=== PATIENT | male | born 1995 | race Caucasian/White ===

== ENCOUNTER 2019-07-24 16:49 | Emergency (ER) | payer OTHER ==
--- NOTE | 2019-07-24 18:29 | ED ---
Laceration/Wound HPI - HPI Summary HPI Summary: 24 yo male presents with LEFT ring finger laceration. He tells me that he was slicing apples and slipped and avulsed a piece of his skin on his distal left ring finger. Bandaged the area and came to the ED. States last tetanus was a few months ago for school. - History of Current Complaint Stated Complaint: LT MIDDLE FINGER LAC PER PT Time Seen by Provider: 07/24/19 18:28 Hx Obtained From: Patient Onset/Duration: Sudden Onset Onset Severity: Mild Current Severity: Mild Pain Intensity: 3 Pain Scale Used: 0-10 Numeric - Allergy/Home Medications Allergies/Adverse Reactions: Allergies Allergy/AdvReac Type Severity Reaction Status Date / Time No Known Allergies Allergy Verified 07/24/19 16:59 PMH/Surg Hx/FS Hx/Imm Hx Endocrine/Hematology History: Denies: Hx Blood Disorders, Hx Diabetes Respiratory History: Denies: Hx Asthma, Hx Chronic Obstructive Pulmonary Disease (COPD) Neurological History: Denies: Hx CVA, Hx Headaches - Surgical History Surgical History: None - Immunization History Immunizations Up to Date: Yes Infectious Disease History: No Infectious Disease History: Denies: Traveled Outside the [place] in Last 30 Days - Family History Known Family History: Positive: Non-Contributory - Social History Occupation: Student Lives: With Family Alcohol Use: None Substance Use Type: Reports: None Smoking Status (MU): Never Smoked Tobacco Review of Systems Constitutional: Negative Cardiovascular: Negative Respiratory: Negative Musculoskeletal: Negative Skin: Other - Laceration left ring finger Neurological: Negative Psychological: Normal All Other Systems Reviewed And Are Negative: No Physical Exam - Summary Physical Exam Summary: GENERAL: NAD. WDWN. No pain distress. SKIN: LEFT RING FINGER: Dorsal aspect distal phalnx with superficial skin avulsion that includes the ulnar aspect of the distal nail without cuticle involvement. No bony or tendon involvement. CHEST: No accessory muscle use. Breathing comfortably and in no distress. CV: Pulses intact. Cap refill <2seconds NEURO: Alert. PSYCH: Age appropriate behavior. Triage Information Reviewed: Yes Vital Signs On Initial Exam: Initial Vitals Temp Pulse Resp BP Pulse Ox 98.2 F 78 14 113/77 99 07/24/19 16:56 07/24/19 16:56 07/24/19 16:56 07/24/19 16:56 07/24/19 16:56 Vital Signs Reviewed: Yes Procedures - Sedation Patient Received Moderate/Deep Sedation with Procedure: No Diagnostics - Vital Signs Vital Signs Temp Pulse Resp BP Pulse Ox 07/24/19 16:56 98.2 F 78 14 113/77 99 - Laboratory Lab Statement: Any lab studies that have been ordered have been reviewed, and results considered in the medical decision making process. Laceration Repair Course/Dx - Course Course Of Treatment: Area irrigated with 500cc of NS. Gelfoam applied and hemostasis achieved. Band-aid applied. - Clinical Impression Provider Diagnoses: Avulsion of skin of finger Discharge ED - Sign-Out/Discharge Documenting (check all that apply): Patient Departure - Discharge Plan Condition: Stable Disposition: HOME Patient Education Materials: Skin Avulsion (ED) Referrals: No Primary Care Phys,NOPCP [Primary Care Provider] - Additional Instructions: If you develop a fever, shortness of breath, chest pain, new or worsening symptoms - please call your PCP or go to the ED immediately. Change the band-aid daily until well healed. May remove the gel-foam in 1-2 weeks with gentle water and peeling - Billing Disposition and Condition Condition: STABLE Disposition: Home
[2019-07-24] MEDS ORDERED: Gelfoam 12-7 ADSORBABL SPONGE* 1 EA SPONGE TOPICAL ONE (18:35)
[2019-07-24 19:22] VITALS: BP 127/84
== END 2019-07-24 19:21 | disposition home or self-care (01) ==
LOC: ED 16:49
DX: S61.215A Laceration without foreign body of left ring finger without damage to nail, initial encounter (principal); W45.8XXA Other foreign body or object entering through skin, initial encounter; Y93.G1 Activity, food preparation and clean up; Y92.9 Unspecified place or not applicable
CPT/HCPCS: 99282; A9270-GY